=== PATIENT | male | born 1985 | race Caucasian/White ===

== ENCOUNTER 2018-01-02 05:54 | Emergency (ER) | payer OTHER ==
[2018-01-02 06:07] VITALS: BP 137/79; PULSE 71; RESP 18; TEMP 97.8
--- NOTE | 2018-01-02 06:53 | XR ---
EXAM: XR Left Foot Complete, 3 or More Views. CLINICAL HISTORY: Reason: Pain TECHNIQUE: Frontal, lateral and oblique views of the left foot. COMPARISON: No relevant prior studies available. FINDINGS: Bones: No acute fracture. Joints: No dislocation. Mild hallux valgus, with approximately 25 angulation at first MTP. Soft tissues: Unremarkable. No radiopaque foreign body. IMPRESSION: No fracture or dislocation. Mild hallux valgus.
--- NOTE | 2018-01-02 07:23 | ED ---
General Adult HPI - General Chief complaint: Extremity Injury, Lower Stated complaint: Foot injury-[facility] Source: patient Mode of arrival: ambulatory Limitations: no limitations - History of Present Illness Initial comments: Dictation was produced using [email or web address] dictation software. please excuse any grammatical, word or spelling errors. Chief Complaint: 32-year-old male presents with left foot pain. History of Present Illness: He was at work. He works at a car [employer]. He states his foot was run over by a metal cart with several items on it. States that his foot hurts severely. Incident occurred approximately 5 AM. Patient states he is having difficulty walking. Denies any lacerations. The ROS documented in this emergency department record has been reviewed and confirmed by me. Those systems with pertinent positive or negative responses have been documented in the HPI. All other systems are other negative and/or noncontributory. - Related Data Home Medications Medication Instructions Recorded Confirmed [id number] 1 each PO Q6HR PRN 01/02/18 01/02/18 [Excedrin] Allergies Allergy/AdvReac Type Severity Reaction Status Date / Time Penicillins Allergy Rash/Hives Verified 01/02/18 06:12 Review of Systems ROS Statement: Those systems with pertinent positive or pertinent negative responses have been documented in the HPI. ROS Other: All systems not noted in ROS Statement are negative. Past Medical History Past Medical History: No Reported History History of Any Multi-Drug Resistant Organisms: None Reported Past Surgical History: No Surgical Hx Reported Past Psychological History: No Psychological Hx Reported Smoking Status: Current every day smoker Past Alcohol Use History: None Reported Past Drug Use History: None Reported General Exam - General Exam Comments Initial Comments: PHYSICAL EXAM: General Impression: Alert and oriented x3, not in acute distress HEENT: Normocephalic atraumatic, extra-ocular movements intact, pupils equal and reactive to light bilaterally, mucous membranes moist. Cardiovascular: Heart regular rate and rhythm, S1&S2 audible, no murmurs, rubs or gallops Chest: Lungs clear to auscultation bilaterally, no rhonchi, no wheeze, no rales Abdomen: Bowel sounds present, abdomen soft, non-tender, non-distended, no organomegaly Musculoskeletal: Pulses present and equal in all extremities, no peripheral edema, tenderness to palpation of all toes of the left foot, no lacerations, mild erythema Motor: Power 5/5 bilaterally, no focal deficits noted Neurological: CN II-XII grossly intact, no focal motor or sensory deficits noted Skin: Intact with no visualized rashes Psych: Normal affect and mood Limitations: no limitations Course Vital Signs 01/02/18 06:01 Temperature 97.8 F Pulse Rate 71 Respiratory 18 Rate Blood Pressure 137/79 O2 Sat by Pulse 96 Oximetry Medical Decision Making - Medical Decision Making ED course: 32-year-old male presents with left foot pain after his toes were run over by a cart at work. All signs upon arrival are within normal limits. Toes on physical exam are mildly erythematous however otherwise appears atraumatic. X-ray shows no acute processes. Patient told to take Motrin Tylenol when necessary pain. Patient understandable agreeable to plan. Advised follow-up with primary care physician upon discharge. Told to seek medical attention with any worsening symptoms. Disposition Clinical Impression: Crush injury of foot Disposition: HOME SELF-CARE Instructions: Foot Contusion (ED) Is patient prescribed a controlled substance at d/c from ED?: No Referrals: Price Ann MD [Primary Care Provider] - 1-2 days Time of Disposition: 07:23
== END 2018-01-02 07:46 | disposition home or self-care (01) ==
LOC: EC 05:54
DX: S97.82XA Crushing injury of left foot, initial encounter (principal); F17.200 Nicotine dependence, unspecified, uncomplicated; Z88.0 Allergy status to penicillin; W23.0XXA Caught, crushed, jammed, or pinched between moving objects, initial encounter; Y92.69 Other specified industrial and construction area as the place of occurrence of the external cause; Y99.0 Civilian activity done for income or pay
CPT/HCPCS: 99283